=== PATIENT | male | born 1975 | race American Indian/Alaskan Native ===

== ENCOUNTER 2019-01-25 17:14 | Emergency (ER) | payer SELFPAY ==
--- NOTE | 2019-01-25 18:23 | Emergency Department Report ---
Blank Doc - Documentation Documentation: 43-year-old male that presents with right sided abdominal pain with n/v. This initial assessment/diagnostic orders/clinical plan/treatment(s) is/are subject to change based on patient's health status, clinical progression and re- assessment by fellow clinical providers in the ED. Further treatment and workup at subsequent clinical providers discretion. Patient/guardians urged not to elope from the ED as their condition may be serious if not clinically assessed and managed. Initial orders include: 1- Patient sent to [facility] for further evaluation and treatment 2- labs 3- UA
[2019-01-25 18:25] VITALS: BP 149/99
[2019-01-25 19:14] LABS: Basophils # (Auto) 0.1 K/mm3 (0.0-0.1); Basophils % (Auto) 2.3 % (0.0-1.8); Eosinophils # (Auto) 0.1 K/mm3 (0.0-0.4); Eosinophils % (Auto) 1.8 % (0.0-4.3); Hematocrit 44.5 % (35.5-45.6); Hemoglobin 15.3 gm/dl (11.8-15.2); Lymphocytes # (Auto) 1.6 K/mm3 (1.2-5.4); Mean Corpuscular HGB Conc 34 % (32-34); Mean Corpuscular Volume 99 fl (84-94); Monocytes # (Auto) 0.4 K/mm3 (0.0-0.8); Monocytes % (Auto) 8.1 % (0.0-7.3); Platelet Count 190 K/mm3 (140-440); Red Blood Count 4.48 M/mm3 (3.65-5.03); Red Cell Distribution Width 12.8 % (13.2-15.2)
[2019-01-25 19:15] LABS: Bilirubin,Urine NEG (Negative); Blood,Urine SM (Negative); Color,Urine Yellow (Yellow); WBC,Urine < 1.0 /HPF (0.0-6.0)
[2019-01-25 19:29] LABS: Alanine Aminotransferase 38 units/L (7-56); Albumin 3.9 g/dL (3.9-5); BUN/Creatinine Ratio 8; Blood Urea Nitrogen 6 mg/dL (9-20); Calcium 8.5 mg/dL (8.4-10.2); Hemolysis Index 8
[2019-01-25] MEDS ORDERED: SODIUM CHLORIDE 0.9% 1000 ML 1,000 ML IV ONE (20:30)
[2019-01-25] MEDS ORDERED: ONDANSETRON 4 MG/2 ML INJ IV ONE (20:30)
[2019-01-25] MEDS ORDERED: FAMOTIDINE 20 MG/2 ML INJ IV ONE (20:31)
[2019-01-25] MEDS ORDERED: DICYCLOMINE 20 MG/2 ML INJ IM ONE (20:31)
--- NOTE | 2019-01-25 22:39 | Cat Scan Report ---
CT abdomen pelvis w con INDICATION: MAIN: RLQ and RUQ pain 100ML OMNI 300. TECHNIQUE: All CT scans at this location are performed using CT dose reduction for ALARA by means of automated e xposure control. COMPARISON: None available. FINDINGS: Lung bases are clear. Diffuse hepatic steatosis, but no focal liver lesions. The stomach appears abno rmal, with fairly diffuse gastric wall thickening, primarily in the proximal and mid stomach. Gallbla dder, spleen, pancreas, kidneys and adrenals are negative. Abdominal aorta is normal in size. No meggan opathy. Pelvis Appendix is difficult to identify but is thought to be seen and unremarkable. No free fluid or inflam matory change in the pelvis. Urinary bladder is mostly collapsed but grossly unremarkable. IMPRESSION: 1. Hepatic steatosis. 2. Fairly diffuse gastric wall thickening. Endoscopy may be helpful. Signer Name: Devin Leal MD Signed: 01/25/2019 10:34 PM Workstation Name: [id number]
--- NOTE | 2019-01-25 23:59 | Ultrasound Report ---
ULTRASOUND ABDOMEN, COMPLETE INDICATION: Right upper quadrant pain. Evaluate for gallstones/cholecystitis. COMPARISON: CT abdomen and pelvis with contrast from earlier today. FINDINGS: Pancreas: Partially obscured by bowel gas without a distinct abnormality. Abdominal Aorta: No significant abnormality. IVC: No significant abnormality. Liver: Normal in size with generalized increased echotexture, consistent with steatosis. No additiona l significant abnormality. Gallbladder: No significant abnormality. Bile ducts: No significant abnormality. Common bile duct measures less than 1 mm. Kidneys: Right: No significant abnormality. Left : No significant abnormality. Spleen: No significant abnormality. Free fluid: None. Additional Findings: None. IMPRESSION: 1. No sonographic evidence of cholelithiasis/acute cholecystitis. 2. Hepatic steatosis. Signer Name: Sigifredo Solo MD Signed: 01/25/2019 11:55 PM Workstation Name: [id number]
--- NOTE | 2019-01-26 03:11 | Emergency Department Report ---
ED Abdominal Pain HPI - General Chief Complaint: Abdominal Pain Stated Complaint: PAIN IN LEFT SIDE Time Seen by Provider: 01/25/19 18:22 Source: patient Mode of arrival: Ambulatory Limitations: No Limitations - History of Present Illness Initial Comments: Patient is a 43-year-old -[place] male with a history of chronic alcoholism who presents to the ED with complaint of acute onset persistent epigastric pain that radiates to the right upper quadrant and right lower quadrant area with nausea and vomiting for the last 3 days worse in the last 12 hours. Patient states that despite the symptoms he had been drinking prior to arrival in the ED. Patient denies fever, chills, diarrhea, dizziness, chest pain, shortness of breath, fever, chills, sore throat, headache, syncope, palpitation or testicular pain and hematuria. MD Complaint: abdominal pain (epigastric), flank pain (right), other (nausea and vomiting) -: Sudden, days(s) (3) Location: RUQ, epigastric, R flank Radiation: RUQ, epigastric, R flank Migration to: no migration Severity scale (0 -10): 6 Quality: cramping, aching, sharp Consistency: constant Improves With: nothing Worsens With: eating, vomiting Context: other (chronic alcohol abuse) Associated Symptoms: denies other symptoms, nausea, vomiting. denies: diarrhea, fever, chills, dysuria, hematemesis, hematochezia, melena, hematuria, syncope - Related Data Previous Rx's Medication Instructions Recorded Last Taken Type Dicyclomine [Bentyl] 20 mg PO Q6H PRN #24 tablet 01/26/19 Unknown Rx Famotidine [Pepcid] 20 mg PO Q12H #60 tablet 01/26/19 Unknown Rx Ondansetron [Zofran Odt] 4 mg PO Q6HR PRN #20 tab.rapdis 01/26/19 Unknown Rx Allergies Allergy/AdvReac Type Severity Reaction Status Date / Time No Known Allergies Allergy Unverified 01/25/19 17:21 ED Review of Systems ROS: Stated complaint: PAIN IN LEFT SIDE Other details as noted in HPI Constitutional: denies: chills, fever Eyes: denies: eye pain, eye discharge, vision change ENT: denies: ear pain, throat pain Respiratory: denies: cough, shortness of breath, wheezing Cardiovascular: denies: chest pain, palpitations Endocrine: no symptoms reported Gastrointestinal: abdominal pain, nausea, vomiting. denies: diarrhea Genitourinary: denies: urgency, dysuria Musculoskeletal: denies: back pain, joint swelling, arthralgia Skin: denies: rash, lesions Neurological: denies: headache, weakness, paresthesias Psychiatric: denies: anxiety, depression, auditory hallucinations, suicidal thoughts Hematological/Lymphatic: denies: easy bleeding, easy bruising ED Past Medical Hx - Past Medical History Previous Medical History?: No - Surgical History Past Surgical History?: No - Social History Smoking Status: Never Smoker Substance Use Type: None - Medications Home Medications: Home Medications Medication Instructions Recorded Confirmed Last Taken Type Dicyclomine [Bentyl] 20 mg PO Q6H PRN #24 tablet 01/26/19 Unknown Rx Famotidine [Pepcid] 20 mg PO Q12H #60 tablet 01/26/19 Unknown Rx Ondansetron [Zofran Odt] 4 mg PO Q6HR PRN #20 tab.rapdis 01/26/19 Unknown Rx ED Physical Exam - General Limitations: No Limitations General appearance: alert, in no apparent distress - Head Head exam: Present: atraumatic, normocephalic, normal inspection - Eye Eye exam: Present: normal appearance, PERRL, EOMI - ENT ENT exam: Present: normal exam, normal orophraynx, mucous membranes moist - Neck Neck exam: Present: normal inspection, full ROM - Respiratory Respiratory exam: Present: normal lung sounds bilaterally. Absent: respiratory distress, wheezes, rales, chest wall tenderness, accessory muscle use, decreased breath sounds, prolonged expiratory - Cardiovascular Cardiovascular Exam: Present: normal rhythm, tachycardia, normal heart sounds. Absent: systolic murmur, diastolic murmur, rubs, gallop - GI/Abdominal GI/Abdominal exam: Present: soft, tenderness (epigastric, RUQ tenderness, negative Chapin's sign), normal bowel sounds. Absent: guarding, rebound, hyperactive bowel sounds, hypoactive bowel sounds - Extremities Exam Extremities exam: Present: normal inspection, full ROM, normal capillary refill - Back Exam Back exam: Present: normal inspection, full ROM. Absent: tenderness, CVA tenderness (L), muscle spasm, paraspinal tenderness - Neurological Exam Neurological exam: Present: alert, oriented X3, CN II-XII intact, normal gait, reflexes normal - Psychiatric Psychiatric exam: Present: normal affect, normal mood - Skin Skin exam: Present: warm, dry, intact, normal color. Absent: rash ED Course Vital Signs 01/25/19 01/25/19 18:22 21:35 Temperature 98 F Pulse Rate 110 H Respiratory 18 18 Rate Blood Pressure 149/99 O2 Sat by Pulse 100 Oximetry ED Medical Decision Making - Lab Data Result diagrams: 01/25/19 18:51 01/25/19 18:51 - Radiology Data Radiology results: report reviewed, image reviewed Findings [facility] [address] [place] [address] Ultrasound Report Signed Patient: CARMENCITA GUTIERREZ MR#: [id number] 9 : 1975 Acct:[id number] Age/Sex: 43 / M ADM Date: 01/25/19 Loc: ED Attending Dr: Ordering Physician: ELSI GREGORIO Date of Service: 01/25/19 Procedure(s): US abdomen limited Accession Number(s): [id number] cc: ELSI GREGORIO ULTRASOUND ABDOMEN, COMPLETE INDICATION: Right upper quadrant pain. Evaluate for gallstones/cholecystitis. COMPARISON: CT abdomen and pelvis with contrast from earlier today. FINDINGS: Pancreas: Partially obscured by bowel gas without a distinct abnormality. Abdominal Aorta: No significant abnormality. IVC: No significant abnormality. Liver: Normal in size with generalized increased echotexture, consistent with steatosis. No additional significant abnormality. Gallbladder: No significant abnormality. Bile ducts: No significant abnormality. Common bile duct measures less than 1 mm. Kidneys: Right: No significant abnormality. Left : No significant abnormality. Spleen: No significant abnormality. Free fluid: None. Additional Findings: None. IMPRESSION: 1. No sonographic evidence of cholelithiasis/acute cholecystitis. 2. Hepatic steatosis. Signer Name: Sigifredo Solo MD Signed: 01/25/2019 11:55 PM Workstation Name: [id number] Transcribed By: SERGE Dictated By: Sigifredo Solo MD Electronically Authenticated By: Sigifredo Solo MD Signed Date/Time: 01/25/192354 DD/ 52 TD/TT: Findings [facility] [address] [place] [address] Cat Scan Report Signed Patient: CARMENCITA GUTIERREZ MR#: [id number] 9 : 1975 Acct:[id number] Age/Sex: 43 / M ADM Date: 01/25/19 Loc: ED Attending Dr: Ordering Physician: ELSI GREGORIO Date of Service: 01/25/19 Procedure(s): CT abdomen pelvis w con Accession Number(s): [id number] cc: ELSI GREGORIO CT abdomen pelvis w con INDICATION: MAIN: RLQ and RUQ pain 100ML OMNI 300. TECHNIQUE: All CT scans at this location are performed using CT dose reduction for ALARA by means of automated exposure control. COMPARISON: None available. FINDINGS: Lung bases are clear. Diffuse hepatic steatosis, but no focal liver lesions. The stomach appears abnormal, with fairly diffuse gastric wall thickening, primarily in the proximal and mid stomach. Gallbladder, spleen, pancreas, kidneys and adrenals are negative. Abdominal aorta is normal in size. No adenopathy. Pelvis Appendix is difficult to identify but is thought to be seen and unremarkable. No free fluid or inflammatory change in the pelvis. Urinary bladder is mostly collapsed but grossly unremarkable. IMPRESSION: 1. Hepatic steatosis. 2. Fairly diffuse gastric wall thickening. Endoscopy may be helpful. Signer Name: Devin Leal MD Signed: 01/25/2019 10:34 PM Workstation Name: [id number] Transcribed By: TM Dictated By: Devin Leal MD Electronically Authenticated By: Devin Leal MD Signed Date/Time: 01/25/19 2234 - Medical Decision Making This is a 43-year-old male with a history of chronic alcoholism who presented to the ED with epigastric and right upper quadrant pain with nausea and vomiting for the last 3 days. In the ED, patient is alert and oriented 3 and is not in distress but tachycardic in triage and appears intoxicated on alcohol. Lab test results were reviewed and showed alcohol of 0.38% and acute hypokalemia of 3.3 mmol per liter, as well as lipase level of 65. The rest of the lab test results are nonactionable. Gallbladder ultrasound shows no sonographic evidence of cholelithiasis or cholecystitis. There is however hepatitic steatosis. The abdomen pelvis CT scan with contrast shows Hepatic steatosis, and fairly diffuse gastric wall thickening. Endoscopy may be helpful. These findings are consistent with chronic alcoholic gastritis given the fact that the patient is a chronic alcoholic. Patient was treated in the ED with normal saline 1 L IV about bolus, also treated for pain with antacids and also given antiemetics in the ED. On reevaluation, patient's symptoms resolved, pain is well controlled with medication and nausea and vomiting has resolved. Repeat blood alcohol level showed alcohol level of 0.20%. Patient was discharged from the ED and advised to follow-up with his primary care physician in 5-7 days for reevaluation. Patient was also given a referral to the GI physicians at [facility] quality control representative. Patient was advised to contact the office of [facility] quality control representative in the next 2-3 days to schedule a follow-up appointment for evaluation with endoscopy. Patient was however advised to return to the ED imme diately if symptoms get worse. - Differential Diagnosis acute gastritis; alcoholic pancreatitis; cholelithiasis; cholecystitis, Critical care attestation.: If time is entered above; I have spent that time in minutes in the direct care of this critically ill patient, excluding procedure time. ED Disposition Clinical Impression: Nausea and vomiting in adult Abdominal pain Qualifiers: Abdominal location: epigastric Qualified Code(s): R10.13 - Epigastric pain Alcoholic gastritis without bleeding Qualifiers: Chronicity: chronic Qualified Code(s): K29.20 - Alcoholic gastritis without bleeding Disposition: DC-01 TO HOME OR SELFCARE Is pt being admited?: No Does the pt Need Aspirin: No Condition: Stable Instructions: Gastritis (ED), Abuse of Alcohol (ED), Acute Nausea and Vomiting (ED), Acute Abdominal Pain (ED) Additional Instructions: Take medication for nausea and vomiting and pain as needed. Follow-up with the GI physician at [facility] quality control representative in 2-3 days as advised. Return to the ED immediately if symptoms get worse. Otherwise consider quitting alcohol abuse. Prescriptions: Dicyclomine [Bentyl] 20 mg PO Q6H PRN #24 tablet PRN Reason: ABDOMINAL PAIN Famotidine [Pepcid] 20 mg PO Q12H #60 tablet Ondansetron [Zofran Odt] 4 mg PO Q6HR PRN #20 tab.rapdis PRN Reason: Nausea Referrals: SUKI DAVIS MD [Staff Physician] - 3-5 Days Time of Disposition: 03:20 Print Language: TONGAN
== END 2019-01-26 03:30 | disposition home or self-care (01) ==
LOC: ED 17:14
DX: K29.20 Alcoholic gastritis without bleeding (principal)
CPT/HCPCS: 36415; 74177; 76705; 80053; 81001; 83690; 85025; 96361; 96374; 96375; 99284; J0500; J2405; J7030; Q9967; 80320; 96372; G0480